=== PATIENT | male | born 1945 | race Two or more races ===

== ENCOUNTER 2025-06-27 08:30 | Day surgery (SDC) | payer MEDICAID, SELFPAY ==
--- NOTE | 2025-06-26 07:00 | EKG_ITS ---
[facility] Test Date: 2025-06-26 Pat Name: BASILIO PASCUAL Department: Room: - Gender: Male User Experience Designer: HARINDER : 1945 Requested By: Franco Schulz Order Number: [id number] Reading MD: Franco Schulz Measurements Intervals [place] Rate: 70 P: 83 VT: 157 QRS: -1 QRSD: 87 T: 50 QT: 393 QTc: 424 Interpretive Statements SINUS RHYTHM No previous ECG available for comparison /store/S0/[id number]/ecg/[id number].pdf
[2025-06-26 11:36] VITALS: BMI 23.1
[2025-06-26 12:00] LABS: Collection Type, Urine Clean Catch
[2025-06-26 12:22] LABS: Basophils # (Auto) 0.1 Thou/mm3 (0.0-0.2); Basophils % (Auto) 1 % (0-2.5); Eosinophils # (Auto) 0.1 Thou/mm3 (0.0-0.5); Eosinophils % (Auto) 2 % (0-10); Hematocrit 41.4 % (41.0-53.0); Hemoglobin 13.9 g/dL (13.5-16.0); Immature Granulocytes Auto 0.03 Thou/mm3 (0.00-0.00); Lymphocytes # (Auto) 0.9 Thou/mm3 (1.0-4.8); Lymphocytes % (Auto) 14 % (10-50); Mean Corpuscular HGB Conc 33.6 g/dl (31.0-37.0); Mean Corpuscular Hemoglobin 31.1 pg (25.0-35.0); Mean Corpuscular Volume 93 fL (80-100); Monocytes # (Auto) 0.7 Thou/mm3 (0.0-0.8); Monocytes % (Auto) 12 % (0-12); Neutrophils # (Auto) 4.2 Thou/mm3 (1.8-7.7); Neutrophils % (Auto) 71 % (37-80); Nucleated Red Blood Cell # 0.00 Thou/mm3 (0.00-0.00); Nucleated Red Blood Cell % 0 /100 WBC (0); Platelet Count 112 Thou/mm3 (140-440); RDW Standard Deviation 47.3 fL (35.1-43.9); Red Blood Count 4.47 Miln/mm3 (4.50-5.90); White Blood Count 6.0 Thou/mm3 (3.8-10.6)
[2025-06-26 12:39] LABS: Alanine Aminotransferase 24 U/L (10-49); Albumin, Serum 4.8 gm/dL (3.4-4.8); Albumin/Globulin Ratio 1.5 (1.2-2.2); Alkaline Phosphatase 186 U/L (46-116); Anion Gap 11 (7-16); Aspartate Amino Transferase 28 U/L (0-34); BUN/Creatinine Ratio 14 Ratio (12-20); Bilirubin,Total 0.6 mg/dL (0.3-1.2); Blood Urea Nitrogen 23 mg/dL (9-23); Calcium 9.2 mg/dL (8.3-10.6); Calcium (Corrected) 9.2 mg/dL (8.5-10.1); Carbon Dioxide 27.0 mMol/L (20.0-31.0); Chloride 107 mMol/L (98-107); Creatinine (Component) 1.7 mg/dL (0.6-1.3); Estimated Creatinine Clearance 31.7 mL/min (>60); Globulin 3.2 gm/dL (2.3-3.5); Glucose 108 mg/dL (74-106); Osmolality,Calculated 293 (275-295); Potassium 4.2 mMol/L (3.4-5.1); Sodium 145 mMol/L (136-145); Total Protein 8.0 gm/dL (5.7-8.2); eGFR 41 See Note
[2025-06-26 12:59] LABS: Bilirubin,Urine Negative (Negative); Blood,Urine Negative (Negative); Clarity,Urine Clear (Clear/Hazy); Color,Urine Yellow (Lt Yel-Yel); Glucose, Urine Negative (Negative); Ketones,Urine Negative (Negative); Leukocyte Esterase,Urine Negative (Negative); Nitrite,Urine Negative (Negative); PH,Urine 6.0 (5.0-7.0); Protein,Urine Trace (Neg - Trace); RBC,Urine 1 /hpf (0-3); Specific Gravity,Urine 1.016 (1.001-1.035); Squamous Epithelial Cell,Urine < 1 /hpf (0-5); Urobilinogen,Urine Negative mg/dL (0.0-1.0); WBC,Urine 1 /hpf (0-5)
--- NOTE | 2025-06-26 13:40 | ESHP_ITS ---
RE: BASILIO TAVAREZ : 1945 DATE OF ADMISSION: 06/26/2025 HISTORY OF PRESENT ILLNESS: Patient is for surgery. He is a 79-year-old American-speaking male with nocturia 5-8 times with some burning. His PSA is 12.2. Patient does not have any history of gross hematuria. PAST SURGICAL HISTORY: Surgery on his left ear. LABORATORY DATA: Patient's serum creatinine is 1.4. SOCIAL HISTORY: Patient has 10 children. ALLERGIES: NONE KNOWN. PAST MEDICAL HISTORY: He has history of hypertension. No history of diabetes. HOME MEDICATIONS: 1. Losartan. 2. Flomax b.i.d. 3. Norvasc. 4. Motrin. PHYSICAL EXAMINATION: Clinical examination revealed: HEENT: Normal. NECK: Supple. LUNGS: Clear. HEART: Heart sounds are normal. ABDOMEN: Soft without any organomegaly. No guarding. No rigidity. EXTREMITIES: Normal. RECTAL: Examination revealed moderately enlarged smooth prostate. GENITOURINARY: Phallus is normal. Testes are down in the scrotum. IMPRESSION: 1. Prostatism. 2. Prostatic obstruction. 3. Elevated prostate-specific antigen of 12.2. PLAN: Cystoscopy and transrectal prostatic ultrasound with ultrasound-guided prostatic needle biopsy. Planned procedure, risks, and complications have been discussed with the patient. Patient has understood them and agreed to proceed. DT: 13:19:32 TT: 13:39:00 Ref: [id number] - TID: [id number]
[2025-06-27] VITALS (7 sets, daily range): BP systolic 126–176; BP diastolic 68–85; PULSE 64–94; RESP 12–16; TEMP 36.2–36.6; O2SAT 98–100; BMI 22.6
--- NOTE | 2025-06-27 10:30 | XR_ITS ---
EXAMINATION: Transrectal prostate sonography Date and time: June 27, 2025, 1142 hours TECHNIQUE: Transrectal sonographic images prostate INDICATIONS: Prostate biopsies by physician in the OR today FINDINGS: Transrectal prostate sonographic images for prostate guidance for biopsies Prostate volume 73.30 cc IMPRESSION: Transrectal prostate sonographic images for prostate biopsies today
--- NOTE | 2025-06-27 12:33 | SUR.PHASEI ---
1153: Pt received in [facility] via [facility]. Report from Thuan OTERO and Dr. Greer. Pt groggy. Easily aroused with eye opening. Resp even, unlabored. VS stable. No c/o pain. 1214: Pt resting with no complaints voiced. Resp even, unlabored. VS stable. Denies pain.
--- NOTE | 2025-06-27 12:36 | SUR.PHASEII ---
1235: Pt more awake, alert. VS stable. Denies pain. Sitting up tolerating po fluids with no difficulty swallowing and no n/v.
--- NOTE | 2025-06-27 15:37 | SUR.PHASEII ---
1246: Pt voided using urinal at bedside 300cc clear pink urine. 1257: Pt fully awake, oriented x3. VS stable. Denies pain. Pt requested daughter interpret for him. Did not wish to use telephone community organization director phone. Pt and daughter stated understanding of discharge instructions. Pt discharged from [facility] in stable condition.
--- NOTE | 2025-06-28 00:11 | ESOP_ITS ---
RE: BASILIO TAVAREZ : 1945 DATE OF OPERATION: 06/27/2025 PREOPERATIVE DIAGNOSES: Prostatism, prostatic obstruction, elevated PSA. POSTOPERATIVE DIAGNOSES: Prostatism, prostatic obstruction, elevated PSA. PROCEDURE PERFORMED: Cystoscopy and transrectal prostatic ultrasound with ultrasound-guided prostatic needle biopsy. ANESTHESIA: Monitored anesthesia by Dr. Greer. INDICATION: Patient is a 79-year-old English-speaking male with nocturia 5-8 times, slowing urinary stream with a PSA of 12.2. Rectally has a smooth moderately large prostate without any nodules. He is now scheduled to have cystoscopy and transrectal prostatic ultrasound with ultrasound-guided prostatic needle biopsy. Planned procedure, risks, and complications have been discussed with the patient. Patient has understood them and agreed to proceed. DESCRIPTION OF PROCEDURE: After the patient was brought to the operating table, under adequate monitored anesthesia by Dr. Greer, he was placed in dorsal lithotomy position. Parts were prepped and draped in the usual fashion. Cystoscopy was then carried out which revealed adequate urethral meatus, normal-appearing urethra, moderately large bilobed prostate. Residual urine about 2 ounces, yellow and clear. There are no intravesical stones or tumors. Ureteral orifices are found to be normal in position and appearance. Scope was withdrawn. Urethra was dilated. Patient was then turned in left lateral position. Transrectal prostatic ultrasound was carried out. Biopsies were obtained from both lobes using ultrasound guidance. Prostatic volume was measured at 72.3 cubic centimeter. Patient tolerated the entire procedure well and left the room in good condition. DT: 12:: TT: 00:10:00 Ref: [id number] - TID: [id number]
== END 2025-06-27 12:57 | disposition home or self-care (01) ==
PROVIDERS: Anesthesiology; PCP Family Medicine; Referring Provider Surgery; Visit Provider Surgery
PROC: (CPT 55700; principal; 2025-06-27 10:30)
PROC: 0TJB8ZZ Inspection of Bladder, Via Natural or Artificial Opening Endoscopic (ICD-10-PCS; CPT 52000; 2025-06-27 10:30)
DX: N40.1 Benign prostatic hyperplasia with lower urinary tract symptoms (principal); N13.8 Other obstructive and reflux uropathy; R35.1 Nocturia; R39.198 Other difficulties with micturition; Z01.810 Encounter for preprocedural cardiovascular examination
CPT/HCPCS: 52281; 55700; 36415; 76942; 80053; 81001; 85025; 87086; 93005; A4217; A4649; J0694; J2704; J3010